=== PATIENT | female | born 1960 | race Caucasian/White ===

== ENCOUNTER 2021-04-27 01:39 | Day surgery (SDC) | payer OTHER | END 2021-04-27 23:07 | disposition home or self-care (01) | LOC: WOUND 01:39 | DX: E11.622 Type 2 diabetes mellitus with other skin ulcer (principal); L97.312 Non-pressure chronic ulcer of right ankle with fat layer exposed; E11.621 Type 2 diabetes mellitus with foot ulcer; L97.519 Non-pressure chronic ulcer of other part of right foot with unspecified severity; E11.42 Type 2 diabetes mellitus with diabetic polyneuropathy; L03.115 Cellulitis of right lower limb; I87.2 Venous insufficiency (chronic) (peripheral); E11.51 Type 2 diabetes mellitus with diabetic peripheral angiopathy without gangrene; F17.210 Nicotine dependence, cigarettes, uncomplicated; Z91.013 Allergy to seafood; Z88.8 Allergy status to other drugs, medicaments and biological substances | CPT/HCPCS: A9270; G0463 ==

== ENCOUNTER 2021-05-04 08:00 | Day surgery (SDC) | payer OTHER | END 2021-05-04 23:59 | disposition home or self-care (01) | LOC: WOUND 08:00 | DX: E11.622 Type 2 diabetes mellitus with other skin ulcer (principal); L97.812 Non-pressure chronic ulcer of other part of right lower leg with fat layer exposed; E11.621 Type 2 diabetes mellitus with foot ulcer; L97.519 Non-pressure chronic ulcer of other part of right foot with unspecified severity; E11.42 Type 2 diabetes mellitus with diabetic polyneuropathy; L03.115 Cellulitis of right lower limb; I87.2 Venous insufficiency (chronic) (peripheral); E11.51 Type 2 diabetes mellitus with diabetic peripheral angiopathy without gangrene; Z72.0 Tobacco use; Z88.8 Allergy status to other drugs, medicaments and biological substances; Z91.013 Allergy to seafood | CPT/HCPCS: A9270 ==

== ENCOUNTER 2021-05-10 04:47 | Day surgery (SDC) | payer OTHER ==
[2021-05-10] MEDS ORDERED: NEURONTIN300 MG PO (11:42)
[2021-05-10] MEDS ORDERED: ATORVASTATIN CA20 MG PO (11:42)
[2021-05-10] MEDS ORDERED: IBUP800 PO (11:43)
[2021-05-10] MEDS ORDERED: ALOGLIPTIN PO (11:43)
[2021-05-10] MEDS ORDERED: CENTRUM SILVER1 EAC2 PO (11:45)
[2021-05-10] MEDS ORDERED: CHANTIX1 MG PO (11:45)
[2021-05-10] MEDS ORDERED: MAGNESIUM OXID500 MG PO (11:46)
[2021-05-10] MEDS ORDERED: MULTIPLE VITAM1 EACH PO (11:46)
[2021-05-10] MEDS ORDERED: XARELTO20 MG PO (15:01)
== END 2021-05-10 23:00 | disposition home or self-care (01) ==
LOC: WOUND 04:47
DX: E11.622 Type 2 diabetes mellitus with other skin ulcer (principal); L97.312 Non-pressure chronic ulcer of right ankle with fat layer exposed; L89.891 Pressure ulcer of other site, stage 1; E11.42 Type 2 diabetes mellitus with diabetic polyneuropathy; L03.115 Cellulitis of right lower limb; Z72.0 Tobacco use; I87.2 Venous insufficiency (chronic) (peripheral); E11.51 Type 2 diabetes mellitus with diabetic peripheral angiopathy without gangrene
CPT/HCPCS: A9270; G0463

== ENCOUNTER 2021-05-10 11:15 | Emergency (ER) | payer OTHER ==
[~2021-05-10] VITALS: Ht 162.6 cm; Wt 79.8 kg
[2021-05-10] MEDS ORDERED: NEURONTIN300 MG PO (11:42)
[2021-05-10] MEDS ORDERED: ATORVASTATIN CA20 MG PO (11:42)
[2021-05-10] MEDS ORDERED: IBUP800 PO (11:43)
[2021-05-10] MEDS ORDERED: ALOGLIPTIN PO (11:43)
[2021-05-10] MEDS ORDERED: CHANTIX1 MG PO (11:45)
[2021-05-10] MEDS ORDERED: CENTRUM SILVER1 EAC2 PO (11:45)
[2021-05-10] MEDS ORDERED: MAGNESIUM OXID500 MG PO (11:46)
[2021-05-10] MEDS ORDERED: MULTIPLE VITAM1 EACH PO (11:46)
[2021-05-10 12:26] LABS: BASOPHILS ABSOLUTE AUTO 0.05 K/mm3 (0.00-0.23); BASOPHILS PERCENT AUTO 0 % (0-2); EOSINOPHILS ABSOLUTE AUTO 0.28 K/mm3 (0.00-0.68); EOSINOPHILS PERCENT AUTO 2 % (0-6); Hematocrit 44.9 % (33.0-51.0); Hemoglobin 14.6 g/dL (11.5-16.0); IMMATURE GRAN ABSOLUTE AUTO 0.03 K/mm3 (0.00-0.10); IMMATURE GRAN PERCENT AUTO 0 % (0-1); LYMPHOCYTES ABSOLUTE AUTO 2.57 K/mm3 (0.84-5.20); LYMPHOCYTES PERCENT AUTO 22 % (21-46); MONOCYTES ABSOLUTE AUTO 0.62 K/mm3 (0.16-1.47); MONOCYTES PERCENT AUTO 5 % (4-13); Mean Corpuscular HGB 28.9 pg (26.0-34.0); Mean Corpuscular HGB Conc 32.5 g/dL (31.5-36.5); Mean Corpuscular Volume 89 fL (80-100); Mean Platelet Volume 10.5 fL (9.1-12.4); NEUTROPHILS ABSOLUTE AUTO 7.97 K/mm3 (1.96-9.15); NEUTROPHILS PERCENT AUTO 69 % (41-73); Platelet Count 367 K/mm3 (150-400); RDW Coefficient Variation 13.5 % (11.7-14.2); RDW Standard Deviation 43.9 fL (35.1-46.3); Red Blood Cell Count 5.05 M/mm3 (3.80-5.20); White Blood Cell Count 11.52 K/mm3 (4.00-11.30)
[2021-05-10 12:31] LABS: Albumin, Blood 3.3 g/dL (3.4-5.0); Albumin/Globulin Ratio 0.8 (0.8-1.8); Bilirubin, Total 0.3 mg/dL (0.1-1.0); Bun/Creatinine Ratio 16.7 (12.0-20.0); Calcium, Blood 10.8 mg/dL (8.5-10.1); Creatinine, Blood 1.14 mg/dL (0.40-1.00); Globulin, Blood 4.3 g/dL (2.2-4.0); Potassium, Blood 4.3 mmol/L (3.5-5.5); Total Protein, Blood 7.6 g/dL (6.4-8.2)
[2021-05-10 13:19] LABS: International Normalized Ratio 0.94; Prothrombin Time Results 9.9 Sec (9.7-11.5)
[2021-05-10] MEDS ORDERED: XARELTO20 MG PO (15:01)
== END 2021-05-10 15:08 | disposition home or self-care (01) ==
LOC: ER 11:15
PROVIDERS: Emergency Medicine
DX: E11.622 Type 2 diabetes mellitus with other skin ulcer (principal); L97.919 Non-pressure chronic ulcer of unspecified part of right lower leg with unspecified severity; E11.65 Type 2 diabetes mellitus with hyperglycemia; E11.51 Type 2 diabetes mellitus with diabetic peripheral angiopathy without gangrene; Z91.013 Allergy to seafood; Z88.8 Allergy status to other drugs, medicaments and biological substances; Z79.899 Other long term (current) drug therapy; F17.200 Nicotine dependence, unspecified, uncomplicated
CPT/HCPCS: 36415; 80053; 85025; 85610; 85730; 93926; 96374; 96375; 99284-25; A9270; J2270; J2405

== ENCOUNTER 2021-05-16 15:56 | Inpatient (IN) | payer OTHER ==
[~2021-05-16] VITALS: Ht 162.6 cm; Wt 81.7 kg
[~2021-05-16 15:56] MED LIST: ALOGLIPTIN PO; ATORVASTATIN CA20 MG PO; CENTRUM SILVER1 EAC2 PO; CHANTIX1 MG PO; IBUP800 PO; MAGNESIUM OXID500 MG PO; MULTIPLE VITAM1 EACH PO; NEURONTIN300 MG PO; XARELTO20 MG PO
[2021-05-16 17:24] LABS: BASOPHILS ABSOLUTE AUTO 0.05 K/mm3 (0.00-0.23); BASOPHILS PERCENT AUTO 1 % (0-2); EOSINOPHILS PERCENT AUTO 4 % (0-6); Hematocrit 39.8 % (33.0-51.0); Hemoglobin 13.1 g/dL (11.5-16.0); IMMATURE GRAN ABSOLUTE AUTO 0.01 K/mm3 (0.00-0.10); IMMATURE GRAN PERCENT AUTO 0 % (0-1); LYMPHOCYTES ABSOLUTE AUTO 2.75 K/mm3 (0.84-5.20); LYMPHOCYTES PERCENT AUTO 29 % (21-46); MONOCYTES PERCENT AUTO 6 % (4-13); Mean Corpuscular HGB 29.1 pg (26.0-34.0); Mean Corpuscular HGB Conc 32.9 g/dL (31.5-36.5); Mean Corpuscular Volume 88 fL (80-100); NEUTROPHILS PERCENT AUTO 60 % (41-73); Platelet Count 331 K/mm3 (150-400); RDW Coefficient Variation 13.9 % (11.7-14.2); RDW Standard Deviation 44.7 fL (35.1-46.3); White Blood Cell Count 9.61 K/mm3 (4.00-11.30)
[2021-05-16] MEDS ORDERED: FURO40 PO (17:34)
[2021-05-16] MEDS ORDERED: VISBIOME 112.51 EACH PO (17:36)
[2021-05-16 17:39] LABS: International Normalized Ratio 1.04; Prothrombin Time Results 10.9 Sec (9.7-11.5)
[2021-05-16 17:44] LABS: Bun/Creatinine Ratio 17.6 (12.0-20.0); Calcium, Blood 10.8 mg/dL (8.5-10.1); Creatinine, Blood 1.02 mg/dL (0.40-1.00); Potassium, Blood 4.1 mmol/L (3.5-5.5)
--- NOTE | 2021-05-16 18:41 | NUR ---
PT ARRIVED IN THE UNIT VIA WHEELCHAIR VIA DIRECT ADMIT PER DR BLACKMAN. PT IS ALERT AND ORIENTED X4 AT BASELINE, PT ASSISTED TO BED WAS ABLE TO STAND AND TRANSFER WITH NO ISSUES MOBILE IN BED. IV STARTED ON RAC FLUSHING GOOD AND IS INTACT. VITALS BP SYSTOLIC ELEVATED 160-180 HYDRALAZINE 10MG WAS GIVENBP WENT DOWN TO 120/81, HRR ST ON THE 90'S, SATS ABOVE 97% ON RA, AFEBRILE. PT HAS WOUNDS ON RIGHT LOWER EXT WOUND DRY AND INTACT PHOTOS IN THE CAHRT, NON ADHESIVE AND KERLIX WRAP IN PLACE, WOUNDS ARE FROM PVD PER PT, PT TO UNDERGO REVASCULARIZATION TOMORROW. NPO AFTER MIDNIGHT, PEDAL PULSES AUSCULTATED VIA DOPPLER. PT C/O 10/10 PAIN ON RIGHT LEG SHARP SHOOTING PAIN, NORCO 5/325MG WAS ORDERED AND WAS EFFECTIVE, GABAPENTIN WAS GIVEN WELL. PT IN BED RIGHT NOW EATING DINNER. NO OTHER ISSUES REPORTED, ABLE TO MAKE NEEDS KNOWN CALLS APPROPRIATELY, WILL REPORT TO ONCOMING SHIFT
[2021-05-17 16:59] LABS: Influenza A, PCR NEGATIVE (NEGATIVE); Influenza B, PCR NEGATIVE (NEGATIVE); Resp Syncytial Virus, PCR NEGATIVE (NEGATIVE); SARS-Cov-2 (COVID-19) PCR, MMC NEGATIVE (NEGATIVE)
--- NOTE | 2021-05-17 17:18 | NUR ---
PT CURRENTLY IN THE [employer] UNDERGOING REVASCULARIZATION PER DR BLACKMAN. PT HAD NORCO X3 FOR THE SHIFT FOR RIGHT LEG PAIN, BP ALSO WAS ELEVATED AT 1802'S, HYDRALAZINE IV 10MG WAS GIVEN BP SYSTOLIC WENT DOWN TO 140'S. HRR SR 70-80'S, SATS ABOVE 95% ON RA, AFERBILE. LEG DRESSING REMAINED INTACT FOR THE SHIFT. NO OTHER ISSUES REPORTED FOR THE SHIFT.
--- NOTE | 2021-05-17 18:55 | NUR ---
Pt left room at approx 1600 for a revascularization attempt. Please see [facility] note. Pt returned to her room at approx 1830 with three access sights for the attempted revascularization: R and L femoral, and R pedal. Pt is awake and expressing pain in both legs. Pain med given per protocol. Access sights observed and no bleeding is present. Pt is in supine position per protocol.Pt is awake and oriented x 4.
[2021-05-18] MEDS ORDERED: Norco 5-325 Ta1 EACH PO (12:24)
== END 2021-05-18 13:25 | disposition home or self-care (01) | DRG 300 ==
LOC: PCU 15:56
PROVIDERS: ADMIT Radiology Diagnostic Radiology
PROC: B41D1ZZ Fluoroscopy of Aorta and Bilateral Lower Extremity Arteries using Low Osmolar Contrast (ICD-10-PCS; principal; 2021-05-17)
DX: E11.51 Type 2 diabetes mellitus with diabetic peripheral angiopathy without gangrene (principal); L97.312 Non-pressure chronic ulcer of right ankle with fat layer exposed; I70.233 Atherosclerosis of native arteries of right leg with ulceration of ankle; Z20.822 Contact with and (suspected) exposure to COVID-19; I70.223 Atherosclerosis of native arteries of extremities with rest pain, bilateral legs; E78.5 Hyperlipidemia, unspecified; E11.22 Type 2 diabetes mellitus with diabetic chronic kidney disease; N18.9 Chronic kidney disease, unspecified; F17.210 Nicotine dependence, cigarettes, uncomplicated; Z90.710 Acquired absence of both cervix and uterus; Z79.899 Other long term (current) drug therapy; Z88.8 Allergy status to other drugs, medicaments and biological substances; Z91.013 Allergy to seafood; Z79.84 Long term (current) use of oral hypoglycemic drugs; Z79.01 Long term (current) use of anticoagulants
CPT/HCPCS: 0241U; 36415; 75625; 75710; 75716; 76937; 80048; 82947; 85025; 85610; 96374; 96375; 96376; 99152; 99153; A9270; C1760; C1769; C1887; C1894; G0378; J0360; J1170; J2250; J2405; J3010; J7030; Q9967

== ENCOUNTER 2021-05-21 18:23 | Emergency (ER) | payer OTHER ==
[~2021-05-21] VITALS: Ht 162.6 cm; Wt 79.8 kg
[~2021-05-21 18:23] MED LIST changes: +FURO40 PO; +Norco 5-325 Ta1 EACH PO; +VISBIOME 112.51 EACH PO
[2021-05-21 20:47] LABS: BASOPHILS ABSOLUTE AUTO 0.06 K/mm3 (0.00-0.23); BASOPHILS PERCENT AUTO 0 % (0-2); EOSINOPHILS ABSOLUTE AUTO 0.74 K/mm3 (0.00-0.68); EOSINOPHILS PERCENT AUTO 5 % (0-6); Hematocrit 35.1 % (33.0-51.0); Hemoglobin 11.6 g/dL (11.5-16.0); IMMATURE GRAN ABSOLUTE AUTO 0.06 K/mm3 (0.00-0.10); IMMATURE GRAN PERCENT AUTO 0 % (0-1); LYMPHOCYTES ABSOLUTE AUTO 2.34 K/mm3 (0.84-5.20); LYMPHOCYTES PERCENT AUTO 17 % (21-46); MONOCYTES ABSOLUTE AUTO 1.05 K/mm3 (0.16-1.47); MONOCYTES PERCENT AUTO 8 % (4-13); Mean Corpuscular HGB 29.6 pg (26.0-34.0); Mean Corpuscular Volume 90 fL (80-100); Mean Platelet Volume 9.8 fL (9.1-12.4); NEUTROPHILS ABSOLUTE AUTO 9.77 K/mm3 (1.96-9.15); NEUTROPHILS PERCENT AUTO 70 % (41-73); Platelet Count 278 K/mm3 (150-400); RDW Standard Deviation 45.3 fL (35.1-46.3); Red Blood Cell Count 3.92 M/mm3 (3.80-5.20); White Blood Cell Count 14.02 K/mm3 (4.00-11.30)
== END 2021-05-21 21:25 | disposition home or self-care (01) ==
LOC: ER 18:23
PROVIDERS: Emergency Medicine
DX: I72.4 Aneurysm of artery of lower extremity (principal); E11.51 Type 2 diabetes mellitus with diabetic peripheral angiopathy without gangrene; I73.9 Peripheral vascular disease, unspecified; F17.200 Nicotine dependence, unspecified, uncomplicated; Z91.013 Allergy to seafood; Z88.8 Allergy status to other drugs, medicaments and biological substances; Z79.899 Other long term (current) drug therapy
CPT/HCPCS: 85025; 93926; 99284-25; A9270

== ENCOUNTER 2021-07-04 02:22 | Day surgery (SDC) | payer OTHER | END 2021-07-04 23:15 | disposition home or self-care (01) | LOC: WOUND 02:22 | DX: E11.622 Type 2 diabetes mellitus with other skin ulcer (principal); L97.312 Non-pressure chronic ulcer of right ankle with fat layer exposed; L97.522 Non-pressure chronic ulcer of other part of left foot with fat layer exposed; E11.621 Type 2 diabetes mellitus with foot ulcer; L97.512 Non-pressure chronic ulcer of other part of right foot with fat layer exposed; E11.42 Type 2 diabetes mellitus with diabetic polyneuropathy; L03.115 Cellulitis of right lower limb; Z72.0 Tobacco use; I87.2 Venous insufficiency (chronic) (peripheral); E11.51 Type 2 diabetes mellitus with diabetic peripheral angiopathy without gangrene; I70.223 Atherosclerosis of native arteries of extremities with rest pain, bilateral legs | CPT/HCPCS: A9270; G0463 ==

== ENCOUNTER 2021-07-26 01:17 | Day surgery (SDC) | payer OTHER | END 2021-07-26 23:07 | disposition home or self-care (01) | LOC: WOUND 01:17 | DX: E11.621 Type 2 diabetes mellitus with foot ulcer (principal); L97.512 Non-pressure chronic ulcer of other part of right foot with fat layer exposed; E11.622 Type 2 diabetes mellitus with other skin ulcer; L97.812 Non-pressure chronic ulcer of other part of right lower leg with fat layer exposed; L97.822 Non-pressure chronic ulcer of other part of left lower leg with fat layer exposed; E11.51 Type 2 diabetes mellitus with diabetic peripheral angiopathy without gangrene; E11.42 Type 2 diabetes mellitus with diabetic polyneuropathy; I70.223 Atherosclerosis of native arteries of extremities with rest pain, bilateral legs; I87.2 Venous insufficiency (chronic) (peripheral); F17.200 Nicotine dependence, unspecified, uncomplicated; E11.65 Type 2 diabetes mellitus with hyperglycemia | CPT/HCPCS: G0463 ==

== ENCOUNTER 2021-09-01 15:48 | Inpatient (IN) | payer OTHER ==
[~2021-09-01] VITALS: Ht 162.6 cm; Wt 84.7 kg
[2021-09-01 16:34] LABS: BASOPHILS ABSOLUTE AUTO 0.04 K/mm3 (0.00-0.23); BASOPHILS PERCENT AUTO 0 % (0-2); EOSINOPHILS ABSOLUTE AUTO 0.19 K/mm3 (0.00-0.68); EOSINOPHILS PERCENT AUTO 1 % (0-6); Hematocrit 36.1 % (33.0-51.0); Hemoglobin 11.9 g/dL (11.5-16.0); IMMATURE GRAN ABSOLUTE AUTO 0.13 K/mm3 (0.00-0.10); IMMATURE GRAN PERCENT AUTO 1 % (0-1); LYMPHOCYTES ABSOLUTE AUTO 1.33 K/mm3 (0.84-5.20); LYMPHOCYTES PERCENT AUTO 8 % (21-46); MONOCYTES ABSOLUTE AUTO 1.07 K/mm3 (0.16-1.47); MONOCYTES PERCENT AUTO 7 % (4-13); Mean Corpuscular HGB 28.5 pg (26.0-34.0); Mean Corpuscular Volume 87 fL (80-100); Mean Platelet Volume 9.3 fL (9.1-12.4); NEUTROPHILS ABSOLUTE AUTO 13.28 K/mm3 (1.96-9.15); NEUTROPHILS PERCENT AUTO 83 % (41-73); Platelet Count 448 K/mm3 (150-400); RDW Coefficient Variation 15.2 % (11.7-14.2); RDW Standard Deviation 48.6 fL (35.1-46.3); Red Blood Cell Count 4.17 M/mm3 (3.80-5.20); White Blood Cell Count 16.04 K/mm3 (4.00-11.30)
[2021-09-01 16:54] LABS: Alanine Aminotransfer (ALT/SGP 25 U/L (12-78); Albumin, Blood 2.5 g/dL (3.4-5.0); Albumin/Globulin Ratio 0.5 (0.8-1.8); Alk Phos 153 U/L (50-136); Anion Gap 6 mmol/L (6-16); Aspartate Aminotrans (AST/SGOT 42 U/L (12-37); Bilirubin, Total 0.5 mg/dL (0.1-1.0); Blood Urea Nitrogen 18 mg/dL (8-24); Bun/Creatinine Ratio 20.9 (12.0-20.0); CO2, Blood 24 mmol/L (21-32); Calcium, Blood 10.5 mg/dL (8.5-10.1); Chloride, Blood 100 mmol/L (98-108); Creatinine, Blood 0.86 mg/dL (0.40-1.00); Globulin, Blood 4.7 g/dL (2.2-4.0); Glomerular Filtration Rate >60 (60-); Glucose, Blood 236 mg/dL (70-99); Potassium, Blood 4.6 mmol/L (3.5-5.5); Sodium, Blood 130 mmol/L (136-145); Total Protein, Blood 7.2 g/dL (6.4-8.2)
--- NOTE | 2021-09-01 23:18 | NUR ---
PATIENT IS A NEW ADMIT FROM THE ED. AXO X 3. FOUR PERSON TRANSFER FROM [facility] TO BED. ON ROOM AIR. NS INFUSING FROM ED. NPO >MIDNIGHT. REPORTS RIGHT ANKLE PAIN CONTROL WITH NORCO GIVEN IN ED PRIOR TO ADMIT. WOUNDS TO RIGHT ANKLE WEEPING AND LEFT CALF. CONSENT TO PHOTOGRAPH SIGNED. PATIENT ORIENTED TO ROOM AND CALL LIGHT SYSTEM.
--- NOTE | 2021-09-02 00:03 | NUR ---
PROVIDER CONSULT CALLED INTO DR LAZARA FLORES ([facility]) ORTHOPEDIC ANSWERING SERVICE.
--- NOTE | 2021-09-02 03:58 | NUR ---
SHIFT SUMMARY PATIENT HAD NO ACUTE CHANGES OBSERVED. AXOX 3-4 AND BEDREST. RIGHT ANKLE WOUND WEEPING AND LEFT CALF ULCERS. PHOTO'S IN CHART. NPO AT THIS TIME. ORTHOPEDIC CONSULT CALLED INTO DR LAZARA HERNANDEZ ([facility]) ANSWERING SERVICE. PIV REMAINS INTACT. IV ABX INFUSED X TWO. TIME SIGNAL WIRER REPORTS ST 117 W/PVC AT ADMIT AND ST105 W/PVC NOW. LOW GRADE TEMP 100.2. REPORTS CEDS X 1 1/2 PACKS. REPORTS ONLY CHECKS GLUCOSE 3 X'S/WEEK BUT MOSTLY NON-COMPLIANT. REPORTED RIGHT ANKLE PAIN AND NORCO GIVEN PER EMAR. PATIENT STATED SHE HASN'T SLEPT IN A BED IN 3 MONTHS USING A W/C TO SLEEP IN AT HOME. FATHER 79 YEARS OLD HELPING WITH HER CARE. CALL LIGHT IN REACH. BED IN LOWEST POSITION. TM.
[2021-09-02 04:46] LABS: BASOPHILS ABSOLUTE AUTO 0.03 K/mm3 (0.00-0.23); BASOPHILS PERCENT AUTO 0 % (0-2); EOSINOPHILS ABSOLUTE AUTO 0.12 K/mm3 (0.00-0.68); EOSINOPHILS PERCENT AUTO 1 % (0-6); Hematocrit 36.8 % (33.0-51.0); Hemoglobin 11.7 g/dL (11.5-16.0); IMMATURE GRAN ABSOLUTE AUTO 0.13 K/mm3 (0.00-0.10); IMMATURE GRAN PERCENT AUTO 1 % (0-1); LYMPHOCYTES ABSOLUTE AUTO 1.33 K/mm3 (0.84-5.20); LYMPHOCYTES PERCENT AUTO 8 % (21-46); MONOCYTES PERCENT AUTO 8 % (4-13); Mean Corpuscular HGB 28.2 pg (26.0-34.0); Mean Corpuscular HGB Conc 31.8 g/dL (31.5-36.5); Mean Corpuscular Volume 89 fL (80-100); NEUTROPHILS ABSOLUTE AUTO 13.63 K/mm3 (1.96-9.15); NEUTROPHILS PERCENT AUTO 82 % (41-73); Platelet Count 426 K/mm3 (150-400); RDW Coefficient Variation 15.3 % (11.7-14.2); RDW Standard Deviation 49.8 fL (35.1-46.3); Red Blood Cell Count 4.15 M/mm3 (3.80-5.20); White Blood Cell Count 16.54 K/mm3 (4.00-11.30)
[2021-09-02 05:06] LABS: Bun/Creatinine Ratio 18.6 (12.0-20.0); Calcium, Blood 10.4 mg/dL (8.5-10.1); Creatinine, Blood 1.02 mg/dL (0.40-1.00); Potassium, Blood 3.6 mmol/L (3.5-5.5)
--- NOTE | 2021-09-02 05:47 | NUR ---
BP 172/92 AND IV TRANDATE 10 MG GIVEN FOR SBP>160 WITH TELEMETRY MONITORING BP 142/87 ON RECHECK WITH HR 96 DOWN FROM HR 118 PER PAPER WINDER.
--- NOTE | 2021-09-02 10:48 | NUR ---
AMA PATIENT INFORMED THAT DOCTOR RECOMMENDS SHE HAVE FOOT AMPUTATION. PATIENT REFUSES SURGERY AND REQUESTS AMA PAPERWORK. PATIENT ADVISED BY BEDSIDE NURSE OF RISKS OF LEAVING WITHOUT COMPLETING TREATMENT. PATIENT SIGNED AMA PAPERWORK AND CALLED FAMILY FOR RIDE HOME.
== END 2021-09-02 10:15 | disposition left against medical advice (07) | DRG 872 ==
LOC: ER 15:48 → MEDS 21:19
PROVIDERS: Family Medicine; Physician Assistant; ADMIT Internal Medicine
DX: A41.9 Sepsis, unspecified organism (principal); L03.115 Cellulitis of right lower limb; L30.4 Erythema intertrigo; R19.7 Diarrhea, unspecified; E11.51 Type 2 diabetes mellitus with diabetic peripheral angiopathy without gangrene; E78.5 Hyperlipidemia, unspecified; I73.9 Peripheral vascular disease, unspecified; M19.90 Unspecified osteoarthritis, unspecified site; F17.200 Nicotine dependence, unspecified, uncomplicated; Z79.899 Other long term (current) drug therapy; Z28.21 Immunization not carried out because of patient refusal; Z90.710 Acquired absence of both cervix and uterus; Z91.013 Allergy to seafood; Z88.8 Allergy status to other drugs, medicaments and biological substances; Z79.01 Long term (current) use of anticoagulants
CPT/HCPCS: 36415; 73701; 80048; 80053; 82947; 83605; 85025; 86140; 87040; 99285-25; A9270; J2543; J3370; J7030; J7050; Q9967

== ENCOUNTER 2023-10-24 18:37 | Inpatient (IN) | payer OTHER ==
[~2023-10-24] VITALS: Ht 165.1 cm; Wt 78.5 kg
[2023-10-24 19:09] LABS: BASOPHILS ABSOLUTE AUTO 0.05 K/mm3 (0.00-0.23); BASOPHILS PERCENT AUTO 0 % (0-2); EOSINOPHILS ABSOLUTE AUTO 0.28 K/mm3 (0.00-0.68); EOSINOPHILS PERCENT AUTO 2 % (0-6); Hematocrit 38.8 % (33.0-51.0); Hemoglobin 12.6 g/dL (11.5-16.0); IMMATURE GRAN ABSOLUTE AUTO 0.04 K/mm3 (0.00-0.10); IMMATURE GRAN PERCENT AUTO 0 % (0-1); LYMPHOCYTES ABSOLUTE AUTO 1.86 K/mm3 (0.84-5.20); LYMPHOCYTES PERCENT AUTO 15 % (21-46); MONOCYTES PERCENT AUTO 6 % (4-13); Mean Corpuscular HGB Conc 32.5 g/dL (31.5-36.5); Mean Corpuscular Volume 83 fL (80-100); Mean Platelet Volume 9.7 fL (9.1-12.4); NEUTROPHILS ABSOLUTE AUTO 9.49 K/mm3 (1.96-9.15); NEUTROPHILS PERCENT AUTO 76 % (41-73); Platelet Count 342 K/mm3 (150-400); RDW Coefficient Variation 15.4 % (11.7-14.2); RDW Standard Deviation 46.3 fL (35.1-46.3); Red Blood Cell Count 4.67 M/mm3 (3.80-5.20); White Blood Cell Count 12.42 K/mm3 (4.00-11.30)
[2023-10-24 19:24] LABS: Albumin, Blood 3.1 g/dL (3.4-5.0); Albumin/Globulin Ratio 0.8 (0.8-1.8); Bilirubin, Total 0.3 mg/dL (0.1-1.0); Bun/Creatinine Ratio 12.9 (12.0-20.0); Calcium, Blood 10.6 mg/dL (8.5-10.1); Creatinine, Blood 1.94 mg/dL (0.40-1.00); Potassium, Blood 3.6 mmol/L (3.5-5.5); Total Protein, Blood 7.1 g/dL (6.4-8.2)
[2023-10-24] MEDS ORDERED: Isosorbide Mono30 MG PO (22:19)
[2023-10-24] MEDS ORDERED: BUPR150ER PO (22:19)
[2023-10-24] MEDS ORDERED: METO25 PO (22:20)
[2023-10-24] MEDS ORDERED: ASPI81CH PO (22:21)
[2023-10-24] MEDS ORDERED: BASAGLAR K100 UNIT/1 SC (22:21)
[2023-10-24] MEDS ORDERED: Metoprolol Tartrate 50 MG Tab PO ONE (22:30)
[2023-10-24] MEDS ORDERED: Ondansetron HCl 2 MG / ML 2ML Vial IV PRN (23:05)
[2023-10-24] MEDS ORDERED: HydrALAZINE HCl 20 MG / ML 1ML Vial IV PRN (23:05)
[2023-10-25] VITALS (16 sets, daily range): BP systolic 128–186; BP diastolic 84–125
[2023-10-25 00:03] LABS: Source, Urine Clean Catch
[2023-10-25 00:06] LABS: Bilirubin, Urine Neg (Neg); Blood, Urine 2+ (Neg); Glucose Qualitative, Urine 4+ (Neg); Ketones, Urine 2+ (Neg); Leukocyte Esterase, Urine 1+ (Neg); Nitrite, Urine Neg (Neg); Protein, Urine 4+ (Neg); Specific Gravity, Urine 1.015 (1.003-1.022); Urobilinogen, Urine NORM (Normal); pH, Urine 6.5 (5.0-8.0)
[2023-10-25 00:17] LABS: Appearance, Urine Hazy (Clear); Color, Urine Pale Yellow (P-Yellow)
[2023-10-25 00:18] LABS: Amorphous Light (0-Heavy); Bacteria Mod /hpf; Red Blood Cells, Urine 0-2 /hpf (0-2); Squamous Epithelial Cells Few /hpf (Few)
[2023-10-25 00:29] LABS: U Amphetamine Screen Not Detected; U Barbituate Screen Not Detected; U Benzodiazapine Screen Not Detected; U Buprenorphine Screen Not Detected; U Cannabinoids Screen Not Detected; U Cocaine Screen Not Detected; U Methadone Screen Not Detected; U Methamphetamine Screen Not Detected; U Opiates Screen Not Detected; U Oxycodone Screen Not Detected; U Phencyclidine Screen Not Detected
[2023-10-25] MEDS ORDERED: CefTRIAXone Sodium 1,000 MG in NS 100 ML IV SCH (01:36)
[2023-10-25] MEDS ORDERED: Insulin Glargine-Yfgn 100 Unit/mL 3 ML SYR SC SCH ×2 (01:40→21:00)
[2023-10-25 01:42] LABS: International Normalized Ratio 0.95; Prothrombin Time Results 10.2 Sec (9.7-11.5)
[2023-10-25] MEDS ORDERED: FentaNYL Citrate 50 MCG/ML 2 ML Injection IV PRN (01:55)
[2023-10-25] MEDS ORDERED: Furosemide 10 MG / ML 2ML Vial IV ONE (02:00)
[2023-10-25 03:13] LABS: BASOPHILS ABSOLUTE AUTO 0.05 K/mm3 (0.00-0.23); BASOPHILS PERCENT AUTO 0 % (0-2); EOSINOPHILS PERCENT AUTO 1 % (0-6); Hematocrit 36.5 % (33.0-51.0); Hemoglobin 11.9 g/dL (11.5-16.0); IMMATURE GRAN ABSOLUTE AUTO 0.03 K/mm3 (0.00-0.10); IMMATURE GRAN PERCENT AUTO 0 % (0-1); LYMPHOCYTES ABSOLUTE AUTO 1.67 K/mm3 (0.84-5.20); LYMPHOCYTES PERCENT AUTO 14 % (21-46); MONOCYTES ABSOLUTE AUTO 0.71 K/mm3 (0.16-1.47); MONOCYTES PERCENT AUTO 6 % (4-13); Mean Corpuscular HGB 26.8 pg (26.0-34.0); Mean Corpuscular HGB Conc 32.6 g/dL (31.5-36.5); Mean Corpuscular Volume 82 fL (80-100); Mean Platelet Volume 9.9 fL (9.1-12.4); NEUTROPHILS ABSOLUTE AUTO 9.24 K/mm3 (1.96-9.15); NEUTROPHILS PERCENT AUTO 78 % (41-73); Platelet Count 321 K/mm3 (150-400); RDW Coefficient Variation 15.4 % (11.7-14.2); RDW Standard Deviation 46.2 fL (35.1-46.3); Red Blood Cell Count 4.44 M/mm3 (3.80-5.20)
[2023-10-25 03:31] LABS: Albumin, Blood 2.9 g/dL (3.4-5.0); Albumin/Globulin Ratio 0.7 (0.8-1.8); Bilirubin, Total 0.3 mg/dL (0.1-1.0); Bun/Creatinine Ratio 11.5 (12.0-20.0); Creatinine, Blood 2.09 mg/dL (0.40-1.00); Potassium, Blood 3.6 mmol/L (3.5-5.5); Total Protein, Blood 6.9 g/dL (6.4-8.2)
[2023-10-25] MEDS ORDERED: HydrALAZINE HCl 20 MG / ML 1ML Vial IV ONE (05:40)
--- NOTE | 2023-10-25 06:14 | NUR ---
0010 Pt arrived from ED via raul with RN in attendance. Stood and pivoted from gurney to bed. 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 Pt oriented to abilites and can make needs known. Shift plan of care reviewed and all questions answered. Pt BP still remains elevated. PRN hydralazine and additional one time dose hydralizine given for SBP>170. Continue frequent NIBP and treat PRN as ordered. Troponin slightly bumped, though BNP 1286 and MD notified. No additional orders at that time. Physical assessment near her baseline per report, though low back pain is exacerbated here. Pt reports injured bcak approximately 1 month ago though has not seen MD regarding. Pain medication ordered PRN. Please see full assessment for additional details. No further complaints or concerns at this time, will continue to monitor.
[2023-10-25] MEDS ORDERED: Acetaminophen 325 MG TABLET PO PRN (07:30)
[2023-10-25] MEDS ORDERED: Insulin Human Lispro 100 Units/ML 3ML Syringe SC SCH (07:30)
[2023-10-25] MEDS ORDERED: Atorvastatin 10 MG Tab PO SCH (09:00)
[2023-10-25] MEDS ORDERED: Isosorbide Mononitrate 30 MG TABCR PO SCH (09:00)
[2023-10-25] MEDS ORDERED: Aspirin 81 MG Chew PO SCH (09:00)
[2023-10-25] MEDS ORDERED: buPROPion HCL 150 MG TAB.SR.12H PO SCH (09:00)
[2023-10-25] MEDS ORDERED: Metoprolol Tartrate 25 MG Tab PO SCH (09:00)
--- NOTE | 2023-10-25 09:54 | NUR ---
AM NOTE this rn assumed care at 0700. vital signs stable, blood pressure hypertensive still, but improvement. tele sinus rhythm 70-80s. patient is alert and oriented x4. perrla. patient is able to make needs known. patient denies chest pain/pressure, pain or shortness of breath. see shift assessment for further detials. md coleman in to see patient with this rn and discussed plan of care. when md Partida in to see patient, patient stated having chest pain. Md Partida informed charger tester. charger tester pamela informed this rn and went to see patient. patient denied having chest pain and said "felt short of breath and then went away". this rn informed patient of additional night in hospital and plan to do a one day stress test tomorrow. so no caffiene pasted 1900 tonight, npo in the morning expect water and medications, and to hold imdur until after first part of stress test completed. see orders. patient agrees to this plan.
--- NOTE | 2023-10-25 11:49 | NUR ---
"Spiritual Care | Pt. Request Pt. is awake in bed and welcomed my visit. Pt. was pleasant. Facilitated a life review and in the process rapport is established. 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 Pt. displayed evidence of Hope and being encouraged about serving the community. Prayed with the Pt. Pt. verbalized gratitude for the spiritual care visit."
[2023-10-25] MEDS ORDERED: Enoxaparin 40 MG/0.4 ML SYR SC SCH (17:00)
--- NOTE | 2023-10-25 17:39 | NUR ---
shift summary patient neuro remains unchanged. vital signs stable. no acute changes this shift. patient npo at midnight for stress test tomorrow. patient is aware of this. plan of care remains up to date
[2023-10-26 03:47] VITALS: BP 168/107
[2023-10-26 04:55] LABS: BASOPHILS ABSOLUTE AUTO 0.04 K/mm3 (0.00-0.23); BASOPHILS PERCENT AUTO 1 % (0-2); EOSINOPHILS ABSOLUTE AUTO 0.29 K/mm3 (0.00-0.68); EOSINOPHILS PERCENT AUTO 3 % (0-6); Hematocrit 32.4 % (33.0-51.0); Hemoglobin 10.5 g/dL (11.5-16.0); IMMATURE GRAN ABSOLUTE AUTO 0.03 K/mm3 (0.00-0.10); IMMATURE GRAN PERCENT AUTO 0 % (0-1); LYMPHOCYTES ABSOLUTE AUTO 1.77 K/mm3 (0.84-5.20); LYMPHOCYTES PERCENT AUTO 21 % (21-46); MONOCYTES PERCENT AUTO 7 % (4-13); Mean Corpuscular HGB 26.9 pg (26.0-34.0); Mean Corpuscular HGB Conc 32.4 g/dL (31.5-36.5); Mean Corpuscular Volume 83 fL (80-100); NEUTROPHILS ABSOLUTE AUTO 5.79 K/mm3 (1.96-9.15); NEUTROPHILS PERCENT AUTO 68 % (41-73); Platelet Count 277 K/mm3 (150-400); RDW Coefficient Variation 15.9 % (11.7-14.2); RDW Standard Deviation 47.7 fL (35.1-46.3); Red Blood Cell Count 3.91 M/mm3 (3.80-5.20); White Blood Cell Count 8.52 K/mm3 (4.00-11.30)
--- NOTE | 2023-10-26 05:05 | NUR ---
1915 Assumed care of pt, bedside report completed. Shift plan of care reviewed with pt and all questions answered. Pt with uneventful shift and appeared to sleep well. Reports moderate back pain, level 6 at times. Tylenol offered and declined. Pt encouraged to call RN for PO Tylenol if she changes her mind. Encourage changes in position/ice or heat packs for symptom management. Pt has denied "chest pain" this shift. Has been NPO [facility] for [facility] test in the AM. Please see full assessment for additional details. No further complaints or concerns at this time, will continue to monitor.
[2023-10-26 05:14] LABS: Calcium, Blood 9.9 mg/dL (8.5-10.1); Creatinine, Blood 2.36 mg/dL (0.40-1.00); Potassium, Blood 3.2 mmol/L (3.5-5.5)
[2023-10-26] MEDS ORDERED: Potassium Chloride 20 MEQ TabCR PO ONE ×2 (06:45→10:15)
[2023-10-26] MEDS ORDERED: Regadenoson 0.4 MG/5 ML SYRINGE ONE (07:48)
[2023-10-26] MEDS ORDERED: Aminophylline 250MG / 10ML 10 ML Vial ONE (07:48)
--- NOTE | 2023-10-26 07:51 | NUR ---
DR MENDOZA AT BEDSIDE, WILL HOLD ORAL MEDICATIONS UNTIL PT CAN EAT POST STRESS TEST.
[2023-10-26] MEDS ORDERED: Torsemide 20 MG TAB PO SCH (09:00)
[2023-10-26] MEDS ORDERED: Furosemide 10 MG/ML 4ML Vial IV SCH ×2 (09:00)
[2023-10-26 09:45] VITALS: BP 187/111
[2023-10-26] MEDS ORDERED: AmLODIPine Besylate 5 MG Tab PO SCH (11:00)
[2023-10-26 11:45] VITALS: BP 150/91
[2023-10-26 11:50] VITALS: BP 118/67
[2023-10-26 15:10] VITALS: BP 162/91
--- NOTE | 2023-10-26 15:57 | NUR ---
PT SIGNED OUT AMA, SHE DISCUSSED THIS THOROUGHLY WITH DR VELASCO, HER AND HIM SIGNED REFUSAL OF TREATEMENT TOGETHER AND PT, MYSELF AND HUY TRAM SIGNED HER AMA FORM. HER PRESCRIOTIONS WERE SENT TO [facility] PER HER REQUEST. SHE IS GIVEN LAB SLIP. IV REMOVED AND PRESSURE DRESSED. SHE EXPRESSED UNDERSTANDING OF RISKS AND NO BENEFIT OF LEAVING AMA, SHE REPORTS THAT SHE IS CONCERNED ABOUT WHO WILL CARE FOR HER 23 CATS IF SHE DOES NOT LEAVE TODAY
[2023-10-27] MEDS ORDERED: Metoprolol Succinate 50 MG TABCR PO SCH (09:00)
== END 2023-10-26 16:00 | disposition left against medical advice (07) | DRG 280 ==
LOC: ER 18:37 → PCU 18:38 → ER 18:38 → PCU 18:38
PROVIDERS: Emergency Medicine; Student in an Organized Health Care Education/Training Program; ADMIT Internal Medicine
DX: I16.1 Hypertensive emergency (principal); J96.01 Acute respiratory failure with hypoxia; I21.A1 Myocardial infarction type 2; N17.9 Acute kidney failure, unspecified; J44.1 Chronic obstructive pulmonary disease with (acute) exacerbation; I50.30 Unspecified diastolic (congestive) heart failure; L12.0 Bullous pemphigoid; I13.0 Hypertensive heart and chronic kidney disease with heart failure and stage 1 through stage 4 chronic kidney disease, or unspecified chronic kidney disease; N18.31 Chronic kidney disease, stage 3a; E11.22 Type 2 diabetes mellitus with diabetic chronic kidney disease; I16.0 Hypertensive urgency; E11.51 Type 2 diabetes mellitus with diabetic peripheral angiopathy without gangrene; J44.9 Chronic obstructive pulmonary disease, unspecified; F17.210 Nicotine dependence, cigarettes, uncomplicated; E27.9 Disorder of adrenal gland, unspecified; Z53.29 Procedure and treatment not carried out because of patient's decision for other reasons; Z88.8 Allergy status to other drugs, medicaments and biological substances; Z91.013 Allergy to seafood; Z79.899 Other long term (current) drug therapy; E78.5 Hyperlipidemia, unspecified; M19.90 Unspecified osteoarthritis, unspecified site; Z95.1 Presence of aortocoronary bypass graft; Z90.710 Acquired absence of both cervix and uterus; Z91.148 Patient's other noncompliance with medication regimen for other reason; R82.81 Pyuria; Z71.6 Tobacco abuse counseling
CPT/HCPCS: 36415; 71046; 71260; 76770; 78452; 80048; 80053; 81001; 82947; 83036; 83605; 83735; 83880; 84484; 85025; 85610; 87086; 93005; 93010; 93017; 93306; 96374; 96375; 96376; 99285-25; A9270; A9500; G0378; J0280; J0360; J0696; J1650; J1815; J1940; J2785; J3010; Q9967